=== PATIENT | female | born 1990 | race Caucasian/White ===

== ENCOUNTER 2023-01-13 22:00 | Emergency (ER) | payer OTHER, SELFPAY ==
[2023-01-13 22:11] VITALS: BP 130/70; PULSE 88; RESP 24; TEMP 36.8; O2SAT 98; BMI 88.6
--- NOTE | 2023-01-13 23:29 | ED.EAR1 ---
HPI - Ear Problem General Chief complaint: Ear Stated complaint: EARACHE Time Seen by Provider: 01/13/23 22:21 Source: patient Mode of arrival: walk-in Limitations: no limitations History of Present Illness HPI Narrative: patient presents complaining of pain of her left ear. States she was seen by her PCP maddie and attempts to irrigate the ear and remove the wax was not successful. She now presents here complaining of decreased hearing and pain of the left ear. No headache but does feel a little dizzy. No nausea MD Complaint: Reports ear pain Related Data Allergies Allergy/AdvReac Type Severity Reaction Status Date / Time morphine Allergy Mild Uncoded 01/13/23 22:15 Review of Systems ROS Status of ROS 10 or more systems reviewed and unremarkable except as noted in history and below PFSH PFS Social History Smoking status: Never smoker Exam Constitutional Vital Signs, click to edit/add: Last Vital Signs Temp 98.3 F 01/13/23 22:11 Pulse 88 01/13/23 22:11 Resp 24 01/13/23 22:11 BP 130/70 01/13/23 22:11 Pulse Ox 98 01/13/23 22:11 O2 Del Method Room Air 01/13/23 22:11 Common normals: no apparent distress, oriented x3, alert and well nourished HENMT Common normals: normocephalic and head/scalp atraumatic Other: left ear impacted with wax. ear canal appears normal Eye Common normals: EOMs intact bilaterally and conjunctivae normal Respiratory Common normals: normal respiratory effort, no retractions and no use of accessory muscles Cardio Common normals: regular rate, regular rhythm, S1 normal heart sound and S2 normal heart sound Extremity Common normals: normal to inspection and full ROM Neuro Common normals: oriented x3, CN's II-XII intact bilaterally, moves all extremities and no focal motor deficits Psych Appearance: grossly normal Course Vital Signs Vital signs: Vital Signs Temperature 98.3 F 01/13/23 22:11 Pulse Rate 88 01/13/23 22:11 Respiratory Rate 24 01/13/23 22:11 Blood Pressure 130/70 01/13/23 22:11 Pulse Oximetry 98 01/13/23 22:11 Oxygen Delivery Method Room Air 01/13/23 22:11 Temperature 98.3 F 01/13/23 22:11 Pulse Rate 88 01/13/23 22:11 Respiratory Rate 24 01/13/23 22:11 Blood Pressure 130/70 01/13/23 22:11 Pulse Oximetry 98 01/13/23 22:11 Oxygen Delivery Method Room Air 01/13/23 22:11 Medical Decision Making MDM Narrative Medical decision making narrative: patient presents with impacted wax left ear and not able to hear. Ear wax irrigated by nursing and now patient is able to hear. >she has debrox at home and will follow up with her doctor Discharge Plan Discharge Chief Complaint: Ear Clinical Impression: Impacted ear wax Patient Disposition: Home, Self-Care Instructions: Carbamide Peroxide (Into the ear) Additional Instructions: follow up with your doctor Stand Alone Forms: Portal Instructions Referrals: Arlet Sierra [Primary Care Provider] - 1 week
== END 2023-01-14 00:18 | disposition home or self-care (01) ==
PROVIDERS: Emergency Provider Internal Medicine; PCP Nurse Practitioner
DX: H61.22 Impacted cerumen, left ear (principal)
CPT/HCPCS: 69209; 99282

== ENCOUNTER 2023-01-27 00:38 | Emergency (ER) | payer OTHER, SELFPAY ==
[2023-01-27 00:40] VITALS: BP 173/96; PULSE 118; RESP 24; TEMP 38.1; O2SAT 96; BMI 88.6
--- NOTE | 2023-01-27 00:40 | ECG_ITS ---
The [facility] Test Date: 2023-01-27 Pat Name: LAURENCE SIMMONS Department: Room: - Gender: Female [employer]: : 1990 Requested By: [id number] Order Number: [id number] Reading MD: ESTELA CASH Measurements Intervals Murray Rate: 114 P: 8 [place]: 160 QRS: 90 QRSD: 90 T: 40 QT: 310 QTc: 378 Interpretive Statements 1120 Sinus tachycardia 8102 Low QRS voltage in chest leads 9140 abnormal rhythm ECG No previous ECG available for comparison Electronically Signed On 01-29-2023 6:59:51 EDT by ESTELA CASH
[2023-01-27 00:46] LABS: Glucometer 158 mg/dL (74-106)
[2023-01-27 00:50] VITALS: PULSE 118; O2SAT 97
--- NOTE | 2023-01-27 00:54 | PC.NURSE ---
Patient arrives via EMS after patient called concerned she was having a stroke due to headache. patient noted to be acting dramatically and screaming while yelling, help me! patient reminded that several staff members were in the room assisting her and attempting to traige her and get her settled in. Patient also informed that her vital signs were stable as patient yells, i can't breath! patient encouraged to slow breathing as she is noted to be hyperventilating. patient states, well i can't breath through my nose. patient encouraged to breath through mouth and is notified that her oxygen saturation is normal. patient denies attempting to take any medications prior to arrival and reports that her was recently diagnosed with rhinovirus.
--- NOTE | 2023-01-27 00:55 | XR_ITS ---
The [address] [address] Patient Name: LAURENCE SIMMONS MRN: [id number] date: 1990 Sex: F Assigned Patient Location: ER Current Patient Location: ED.MAIN Accession/Order Number: [id number] Exam Date: 01/27/2023 01:15 Report Date: 01/27/2023 01:38 At the request of: TAIWO BOND Procedure: XR chest 1V EXAM: XR chest 1V HISTORY: SOB COMPARISON: Chest x-ray 02/19/2021 TECHNIQUE: Single frontal view chest x-ray FINDINGS: Bilateral lower lung opacities reflect lung infiltrates versus overlapping external body soft tissue artifact. No discrete large pleural effusion, large pneumothorax, or discrete acute bony abnormality. Mildly enlarged cardiac silhouette. XR/XR chest 1V IMPRESSION: Bilateral lower lung opacities reflect lung infiltrates versus overlapping external body soft tissue artifact. It is difficult to differentiate given the body habitus degradation of exam. CT chest can better evaluate. Mildly enlarged cardiac silhouette. Electronically authenticated by: DENIS ADAME Date: 01/27/2023 01:38
--- NOTE | 2023-01-27 00:56 | ED.GENADUL1 ---
HPI - General Adult General Chief complaint: Headache Stated complaint: weakness Time Seen by Provider: 01/27/23 00:38 Source: patient Mode of arrival: ambulance Limitations: no limitations History of Present Illness HPI narrative: 32-year-old female presents for a one-day history of not feeling well. She complains of a headache and she was found to have a fever here at triage. She did not check it at home. IV hurts and she's been nauseous. Her was recently discharged from the hospital after having had rhinovirus. She was transported here by paramedics. Related Data Allergies Allergy/AdvReac Type Severity Reaction Status Date / Time morphine Allergy Mild Uncoded 01/27/23 00:40 Review of Systems ROS Narrative A ten point review of systems is negative except as noted above. PFSH PFSH Social History Smoking status: Never smoker Exam Narrative Exam Narrative: Nurses note and vital signs reviewed and patient is not hypoxic. General: The patient appears in no apparent distress. Skin: Warm, dry, no pallor noted. There is no rash noted. Head: Normocephalic, atraumatic Eye: Normal conjunctiva, no drainage Ears, Nose, Mouth, and Throat: oral mucosa is moist. Nares patent. Cardiovascular: Regular Rate and Rhythm, mildly tachycardic Respiratory: Patient is in no distress, no accessory muscle use, lungs are clear to auscultation, no wheezing, rales or rhonchi GI: obese and nontender Musculoskeletal: The patient has no evidence of calf tenderness, no pitting edema, symmetrical pulses noted bilaterally Neurological: A&O, normal speech Psychiatric: Cooperative Constitutional Vital Signs, click to edit/add: Last Vital Signs Temp 98.8 F 01/27/23 02:00 Pulse 107 H 01/27/23 02:00 Resp 24 01/27/23 00:40 BP 173/96 H 01/27/23 00:40 Pulse Ox 92 L 01/27/23 02:00 O2 Del Method Room Air 01/27/23 00:50 Course Vital Signs Vital signs: Vital Signs Temperature 100.5 F H 01/27/23 00:40 Pulse Rate 118 H 01/27/23 00:40 Respiratory Rate 24 01/27/23 00:40 Blood Pressure 173/96 H 01/27/23 00:40 Pulse Oximetry 96 01/27/23 00:40 Oxygen Delivery Method Room Air 01/27/23 00:40 Temperature 98.8 F 01/27/23 02:00 Pulse Rate 107 H 01/27/23 02:00 Respiratory Rate 24 01/27/23 00:40 Blood Pressure 173/96 H 01/27/23 00:40 Pulse Oximetry 92 L 01/27/23 02:00 Oxygen Delivery Method Room Air 01/27/23 00:50 Medical Decision Making MDM Narrative Medical decision making narrative: The patient has tested positive for both Covid and rhinovirus. Chest x-ray reading is considered but I do not clinically believe that she has pneumonia. She does not have an indication for an antibiotic and she is being discharged home. Treatment diagnosis and follow-up were discussed with the patient. She has been sick for less than one day. Lab Data Lab results reviewed: Yes I reviewed the patient's lab results Labs: Lab Results 01/27/23 01/27/23 Range/Units 00:45 01:10 WBC 10.6 (4.0-11.0) 10^3/uL RBC 4.68 (4.20-5.40) 10^6/uL Hgb 12.9 (12.0-16.0) g/dL Hct 40.2 (36.0-48.0) % MCV 85.9 (81.0-99.0) fL MCH 27.6 (26.7-34.0) pg MCHC 32.1 (29.9-35.2) g/dL RDW 13.7 (11.0-15.0) % Plt Count 170 (150-450) 10^3/uL MPV 10.9 (9.5-13.5) fL Neut % (Auto) 84.5 H (43.0-75.0) % Lymph % (Auto) 8.3 L (20.5-60.0) % [place] % (Auto) 5.8 (1.7-12.0) % Eos % (Auto) 0.3 L (0.9-7.0) % Baso % (Auto) 0.3 (0.2-2.0) % Neut # (Auto) 9.0 H (1.4-6.5) 10^3/uL Lymph # (Auto) 0.9 L (1.2-3.8) 10^3/uL [place] # (Auto) 0.6 (0.3-0.8) 10^3/uL Eos # (Auto) 0.0 (0.0-0.7) 10^3/uL Baso # (Auto) 0.0 (0.0-0.1) 10^3/uL Abs Immat Gran (auto) 0.08 H (0.00-0.03) 10^3/uL Imm/Tot Granulo (auto) 0.8 H (0.0-0.5) % Sodium 135 L (136-145) mmol/L Potassium 3.8 (3.5-5.1) mmol/L Chloride 97 L (98-107) mmol/L Carbon Dioxide 25.2 (21.0-32.0) mmol/L Anion Gap 16.6 BUN 11.0 (7.0-18.0) mg/dL Creatinine 0.75 (0.55-1.02) mg/dL Est GFR ( Amer) >60 (>=60) Est GFR (Non-Af Amer) >60 (>=60) BUN/Creatinine Ratio 14.7 Glucose 144 H (74-106) mg/dL Calcium 8.7 (8.5-10.1) mg/dL Serum HCG, Qual Negative (NEGATIVE) Adenovirus (PCR) Not detected (NOT DETECTE) C. pneumoniae DNA (PCR) Not detected (NOT DETECTE) Coronavirus Type OC43 Not detected (NOT DETECTE) Coronavirus Type HKU1 Not detected (NOT DETECTE) Coronavirus Type 229E Not detected (NOT DETECTE) Coronavirus Type NL63 Not detected (NOT DETECTE) Human Metapneumovir PCR Not detected (NOT DETECTE) M. pneumoniae (PCR) Not detected (NOT DETECTE) Parainfluenza PCR Not detected (NOT DETECTE) Parainfluenza 2 (PCR) Not detected (NOT DETECTE) Parainfluenza 3 (PCR) Not detected (NOT DETECTE) Parainfluenza 4 (PCR) Not detected (NOT DETECTE) RSV (RT-PCR) Not detected (NOT DETECTE) Entero/Rhino (PCR) Detected A (NOT DETECTE) SARS-CoV-2 (PCR) Detected A (NOT DETECTE) Bordetella pertussis (PCR) Not detected (NOT DETECTE) B parapertussis DNA PCR Not detected (NOT DETECTE) Influenza Type A (PCR) Not detected (NOT DETECTE) Influenza Type B (PCR) Not detected (NOT DETECTE) POC Glucose 158 H (74-106) mg/dL Imaging Data Chest x-ray: Radiologist's impression: Procedure: XR chest 1V EXAM: XR chest 1V HISTORY: SOB COMPARISON: Chest x-ray 02/19/2021 TECHNIQUE: Single frontal view chest x-ray FINDINGS: Bilateral lower lung opacities reflect lung infiltrates versus overlapping external body soft tissue artifact. No discrete large pleural effusion, large pneumothorax, or discrete acute bony abnormality. Mildly enlarged cardiac silhouette. IMPRESSION: Bilateral lower lung opacities reflect lung infiltrates versus overlapping external body soft tissue artifact. It is difficult to differentiate given the body habitus degradation of exam. CT chest can better evaluate. Mildly enlarged cardiac silhouette. Electronically authenticated by: DENIS ADAME Date: 01/27/2023 01:38 Discharge Plan Discharge Chief Complaint: Headache Clinical Impression: COVID-19, Rhinovirus infection Patient Disposition: Home, Self-Care Time of Disposition Decision: 02:33 Condition: Good Mode of Transportation: Private Vehicle Instructions: COVID-19 (Coronavirus Disease 2019) (ED), COVID-19: Slow the Coronavirus Spread (ED), Face Coverings (Masks) and COVID-19 (ED), How to Recover from COVID-19 at Home (ED), Social Distancing Guidelines for COVID-19 (ED) Stand Alone Forms: Portal Instructions Referrals: Arlet Sierra [Primary Care Provider] - 1 week
[2023-01-27] MEDS: 0.9 % SODIUM CHLORIDE 1,000 ML 1000 ML IV (01:08)
[2023-01-27] MEDS: KETOROLAC TROMETHAMINE 30 MG/ML VIAL IVP (01:09)
[2023-01-27] MEDS: ONDANSETRON PF 4 MG/2 ML VIAL IV (01:09)
[2023-01-27] MEDS: ACETAMINOPHEN 325 MG TABLET 650 MG PO (01:10)
[2023-01-27 01:13] LABS: Adenovirus NOT DETECTED (NOT DETECTE); Bordetella parapertussis NOT DETECTED (NOT DETECTE); Coronavirus 229E NOT DETECTED (NOT DETECTE); Coronavirus HKU1 NOT DETECTED (NOT DETECTE); Coronavirus NL63 NOT DETECTED (NOT DETECTE); Coronavirus OC43 NOT DETECTED (NOT DETECTE); Human Metapneumovirus NOT DETECTED (NOT DETECTE); Influenza A NOT DETECTED (NOT DETECTE); Influenza B NOT DETECTED (NOT DETECTE); Mycoplasma pneumoniae NOT DETECTED (NOT DETECTE); Parainfluenza Virus 1 NOT DETECTED (NOT DETECTE); Parainfluenza Virus 2 NOT DETECTED (NOT DETECTE); Parainfluenza Virus 3 NOT DETECTED (NOT DETECTE); Parainfluenza Virus 4 NOT DETECTED (NOT DETECTE); Respiratory Syncytial Virus NOT DETECTED (NOT DETECTE)
[2023-01-27 01:28] LABS: Basophils Percent Auto 0.3 % (0.2-2.0); Eosinophils Percent Auto 0.3 % (0.9-7.0); Hematocrit 40.2 % (36.0-48.0); Hemoglobin 12.9 g/dL (12.0-16.0); Immature Granulocytes Abs Auto 0.08 10^3/uL (0.00-0.03); Immature Granulocytes Pct Auto 0.8 % (0.0-0.5); Lymphocytes Absolute Auto 0.9 10^3/uL (1.2-3.8); Lymphocytes Percent Auto 8.3 % (20.5-60.0); Mean Corpuscular HGB Conc 32.1 g/dL (29.9-35.2); Mean Corpuscular Hemoglobin 27.6 pg (26.7-34.0); Mean Corpuscular Volume 85.9 fL (81.0-99.0); Mean Platelet Volume 10.9 fL (9.5-13.5); Monocytes Absolute Auto 0.6 10^3/uL (0.3-0.8); Monocytes Percent Auto 5.8 % (1.7-12.0); Neutrophils Percent Auto 84.5 % (43.0-75.0); Platelet Count 170 10^3/uL (150-450); Red Blood Count 4.68 10^6/uL (4.20-5.40); Red Cell Distribution Width 13.7 % (11.0-15.0); White Blood Count 10.6 10^3/uL (4.0-11.0)
[2023-01-27 01:30] LABS: Anion Gap 16.6; BUN Creatinine Ratio 14.7; Calcium 8.7 mg/dL (8.5-10.1); Carbon Dioxide 25.2 mmol/L (21.0-32.0); Chloride 97 mmol/L (98-107); Estimated GFR (African America >60 (>=60); Estimated GFR (Non-African Ame >60 (>=60); Glucose 144 mg/dL (74-106); Potassium 3.8 mmol/L (3.5-5.1); Sodium 135 mmol/L (136-145)
[2023-01-27 01:34] LABS: HCG Qualitative NEGATIVE (NEGATIVE)
[2023-01-27 02:00] VITALS: PULSE 107; TEMP 37.1; O2SAT 92
[2023-01-27 02:17] LABS: SARS-CoV-2 DETECTED (NOT DETECTE)
[2023-01-27 02:18] LABS: Human Rhinovirus/Enterovirus DETECTED (NOT DETECTE)
== END 2023-01-27 02:57 | disposition home or self-care (01) ==
PROVIDERS: Emergency Provider Emergency Medicine; PCP Nurse Practitioner
DX: U07.1 COVID-19 (principal); B34.8 Other viral infections of unspecified site; R50.9 Fever, unspecified
CPT/HCPCS: 0202U; 36415; 71045; 80048; 84703; 85025; 93005; 96374; 96375; 99284